=== PATIENT | female | born 1950 | race Caucasian/White ===

== ENCOUNTER → 2017-01-28 | Outpatient (CLI) | payer MEDICARE, OTHER ==
[2014-12-26 08:55] VITALS: BP 115/63
--- NOTE | 2017-01-29 08:41 | RAD ---
Radionuclide bone scan, 01/28/2017: History: Lung nodules, possible metastatic disease Whole body imaging was performed following IV injection of 25 mCi of technetium 99m MDP. The following findings are delineated: 1. There is generalized increased activity throughout the mid and lower thoracic spine. The pattern suggests extensive hypertrophic degenerative change change. Potential activity related to the T6 vertebral compression fracture cannot be differentiated from is generalized increased activity through this region. 2. Mildly increased activity is seen in the mid lumbar spine and at the lumbosacral junction level, which may be arthritic or metastatic. 3. Mildly increased activity along the inferior aspects of both sacroiliac joints is likely arthritic. 4. A focus of mildly increased activity is seen in the mid right humerus. This could be traumatic or metastatic. Right humeral radiographs may be useful for further evaluation. 5. Activity of the radionuclide about the skeleton major joints is otherwise unremarkable.
== END | disposition home or self-care (01) ==
LOC: NM 10:02
PROVIDERS: ATTEND Internal Medicine Pulmonary Disease
DX: R91.8 Other nonspecific abnormal finding of lung field (principal)
CPT/HCPCS: 78306; 96374; A9503